=== PATIENT | female | born 1995 | race Caucasian/White ===

== ENCOUNTER 2016-12-01 14:13 | Emergency (ER) | payer OTHER ==
[2016-12-01 14:32] VITALS: TEMP 97.9
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
[2016-12-01] MEDS ORDERED: LETS SOLN TOPICAL 1 EA SYR TP ONE (15:08)
[2016-12-01 17:07] VITALS: BP 112/64; PULSE 70; RESP 14; O2SAT 98
== END 2016-12-01 17:07 | disposition home or self-care (01) ==
LOC: EDUNIT#
PROC: 0HQFXZZ Repair Right Hand Skin, External Approach (ICD-10-PCS; principal; 2016-12-01)
DX: S62.024A Nondisplaced fracture of middle third of navicular [scaphoid] bone of right wrist, initial encounter for closed fracture (principal); S61.411A Laceration without foreign body of right hand, initial encounter; S63.611A Unspecified sprain of left index finger, initial encounter; S09.90XA Unspecified injury of head, initial encounter; S00.81XA Abrasion of other part of head, initial encounter; V13.4XXA Pedal cycle driver injured in collision with car, pick-up truck or van in traffic accident, initial encounter; Y92.89 Other specified places as the place of occurrence of the external cause; Y99.8 Other external cause status; Y93.89 Activity, other specified
CPT/HCPCS: L3925